=== PATIENT | female | born 1990 | race Two or more races ===

== ENCOUNTER 2019-11-09 05:12 | Inpatient (IN) | payer OTHER ==
[2019-11-09 05:51] VITALS: BP 119/59
[2019-11-09] MEDS ORDERED: PREN-217 PO (06:02)
[2019-11-09] MEDS ORDERED: RINGERS SOLUTION,LACTATED 1,000 ML IV ONE (06:08)
[2019-11-09] MEDS ORDERED: OXYTOCIN 30 UNITS/LACT RINGERS 500 ML IV ONE ×2 (06:08→19:23)
[2019-11-09] MEDS ORDERED: LIDOCAINE/PF 1% 30 ML VIAL INJ PRN ×2 (06:15→19:30)
[2019-11-09] MEDS ORDERED: MISOPROSTOL 50 MCG TABLET PO ONE (06:15)
[2019-11-09 06:35] LABS: BASOPHILS % (AUTO) 0.2 % (0.0-2.0); EOSINOPHILS % (AUTO) 0.8 % (1.0-6.0); HEMATOCRIT 34.6 % (36-46); LYMPHOCYTES # (AUTO) 1.2 K/uL (1.0-4.8); LYMPHOCYTES % (AUTO) 10.9 % (22.0-44.0); MEAN CORPUSCULAR HEMOGLOBIN 33.5 pg (26.0-34.0); MEAN CORPUSCULAR HGB CONC 34.8 G/dL (31.0-37.0); MEAN CORPUSCULAR VOLUME 96 fL (80-100); MONOCYTES # (AUTO) 0.7 K/uL (0.1-1.0); MONOCYTES % (AUTO) 6.5 % (2.0-9.0); NEUTROPHILS # (AUTO) 8.6 K/uL (1.8-7.7); NEUTROPHILS % (AUTO) 81.6 % (40.0-70.0); PLATELET COUNT (AUTO)-OB 183 K/uL (150-450); RED CELL DISTRIBUTION WIDTH 12.8 % (11.5-14.5)
[2019-11-09] MEDS: RINGERS SOLUTION,LACTATED 1,000 ML IV SCH ×5 (06:45→17:40)
[2019-11-09] MEDS ORDERED: ROPIVACAINE HCL/PF 0.2% 100 ML ED ONE (11:10)
[2019-11-09] MEDS ORDERED: ROPIVACAINE HCL/PF 0.2% 100 ML ED PRN (11:30)
[2019-11-09] MEDS ORDERED: NALBUPHINE HCL 10 MG/ML VIAL IVP PRN (11:30)
[2019-11-09] MEDS ORDERED: ONDANSETRON HCL 4 MG/2 ML VIAL IVP PRN (11:30)
[2019-11-09] MEDS ORDERED: DiphenhydrAMINE HCL 50 MG/ML VIAL IVP PRN (11:30)
[2019-11-09] MEDS ORDERED: KETOROLAC TROMETHAMINE 30 MG/ML VIAL IVP ONE (19:15)
[2019-11-09] MEDS ORDERED: OxyCODONE HCL/ACETAMINOPHEN 5-325 MG TABLET PO PRN (19:30)
[2019-11-09] MEDS ORDERED: BENZOCAINE 20%/MENTHOL 56 GM SPRAY CANISTER TP PRN (19:30)
[2019-11-09] MEDS ORDERED: GLYCERIN/WITCH HAZEL LEAF 40 PADS JAR TP PRN (19:30)
[2019-11-09] MEDS ORDERED: LANOLIN 7 GM OINTMENT TP PRN (19:30)
[2019-11-09] MEDS: MAGNESIUM HYDROXIDE SUSPENSION 30 ML UDCUP PO PRN (20:40)
[2019-11-09] MEDS: IBUPROFEN 800 MG TABLET PO PRN (20:45)
[2019-11-10 06:45] LABS: BASOPHILS % (AUTO) 0.1 % (0.0-2.0); EOSINOPHILS % (AUTO) 0.3 % (1.0-6.0); HEMATOCRIT 31.7 % (36-46); HEMOGLOBIN 10.6 g/dL (12.0-16.0); LYMPHOCYTES # (AUTO) 1.4 K/uL (1.0-4.8); MEAN CORPUSCULAR HEMOGLOBIN 32.3 pg (26.0-34.0); MEAN CORPUSCULAR HGB CONC 33.5 G/dL (31.0-37.0); MEAN CORPUSCULAR VOLUME 97 fL (80-100); MONOCYTES # (AUTO) 1.3 K/uL (0.1-1.0); MONOCYTES % (AUTO) 5.5 % (2.0-9.0); NEUTROPHILS # (AUTO) 21.1 K/uL (1.8-7.7); PLATELET COUNT (AUTO)-OB 159 K/uL (150-450); RED BLOOD CELL COUNT(AUTO) 3.29 MIL/uL (4.00-5.20); RED CELL DISTRIBUTION WIDTH 12.6 % (11.5-14.5)
[2019-11-10 06:46] LABS: NEUTROPHILS % (AUTO) 88.1 % (40.0-70.0)
[2019-11-10] MEDS: OxyCODONE HCL/ACETAMINOPHEN 5-325 MG TABLET PO PRN ×2 (08:28→16:10)
[2019-11-10] MEDS: MAGNESIUM HYDROXIDE SUSPENSION 30 ML UDCUP PO PRN (08:28)
[2019-11-10] MEDS: IBUPROFEN 800 MG TABLET PO PRN ×2 (08:28→16:10)
[2019-11-10] MEDS ORDERED: IBUP-2071 PO (13:43)
== END 2019-11-10 19:02 | disposition home or self-care (01) | DRG 807 ==
LOC: OBSVTOIN 05:12 → 4S 05:12
PROVIDERS: ADMIT Obstetrics & Gynecology Obstetrics; ATTEND Obstetrics & Gynecology Obstetrics
PROC: 0W8NXZZ Division of Female Perineum, External Approach (ICD-10-PCS; principal; 2019-11-09)
PROC: 10D07Z6 Extraction of Products of Conception, Vacuum, Via Natural or Artificial Opening (ICD-10-PCS; 2019-11-09)
PROC: 0KQM0ZZ Repair Perineum Muscle, Open Approach (ICD-10-PCS; 2019-11-09)
PROC: 3E0R3BZ Introduction of Anesthetic Agent into Spinal Canal, Percutaneous Approach (ICD-10-PCS; 2019-11-09)
PROC: 00HU33Z Insertion of Infusion Device into Spinal Canal, Percutaneous Approach (ICD-10-PCS; 2019-11-09)
DX: O69.81X0 Labor and delivery complicated by cord around neck, without compression, not applicable or unspecified (principal); Z37.0 Single live birth; Z3A.39 39 weeks gestation of pregnancy; O70.1 Second degree perineal laceration during delivery
CPT/HCPCS: 86850; 86900; 86901; J1885; J2590; J2795; J7120